=== PATIENT | female | born 1990 | race Caucasian/White ===

== ENCOUNTER 2019-11-07 08:10 | Emergency (ER) | payer OTHER, SELFPAY ==
[2019-11-07 08:40] VITALS: BP 108/74; PULSE 83; RESP 20; TEMP 36.5; O2SAT 99
--- NOTE | 2019-11-07 08:50 | ED.EYEPROB ---
HPI - Eye Problem General Chief complaint: Eye Problems Stated complaint: eye problems Time Seen by Provider: 11/07/19 08:50 Source: patient Mode of arrival: ambulatory Limitations: no limitations History of Present Illness HPI Narrative: Leda Madrid is a 25 yo female with a PMH of depression who comes to express care with L eye puffiness. mild redness that started yesterday. No injury mechanism Related Data Home Medications Medication Instructions Recorded Confirmed Iud 11/07/19 citalopram mg 11/07/19 Allergies Allergy/AdvReac Type Severity Reaction Status Date / Time Sulfa (Sulfonamide Allergy Hives Verified 11/07/19 08:50 Antibiotics) Review of Systems Review of Systems: Narrative: CONSTITUTIONAL: Denies fever, chills, sweats. EYES: Denies visual changes, mild redness, mild discharge. ENT: Denies rhinorrhea, congestion, sore throat, otalgia. CARDIOVASCULAR: Denies chest pain, palpitations, edema. RESPIRATORY: Denies dyspnea, wheezing, cough GASTROINTESTINAL: Denies abdominal pain, nausea, vomiting, diarrhea. GENITOURINARY: Denies dysuria, hematuria, abnormal discharge SKIN: Denies rash or itching. NEUROLOGIC: Denies numbness, or focal weakness. PSYCHIATRIC: Denies anxiety or depression. [facility] Family History Family History Other No active medical problems Social History Social History (Updated 11/07/19 @ 09:03 by Mimi Mooney CNP) Smoking status: Never smoker Alcohol intake: current Comments At time of signature, I agree with nursing past medical, surgical, social and family history. There is no relevant family history pertinent to the presenting complaint. Exam Narrative: Exam Narrative: GENERAL: This is a well-nourished, well-developed patient, in mild distress. HEAD: normocephalic, atraumatic. EYES: PERRL. Sclera mild injection. Mild edema to upper lid vision is grossly intact. EARS: External ears normal, Hearing grossly intact. NOSE: External nose normal without nasal discharge, nares without redness, no rhinorrhea. THROAT: Mucous membranes moist, NECK: Neck supple, CARDIOVASCULAR: Regular rate and rhythm without murmurs, gallops, or rubs. RESPIRATORY: Clear to auscultation. Breath sounds equal bilaterally. No wheezes, rales, or rhonchi. GASTROINTESTINAL: Abdomen soft, SKIN: warm, intact with no suspicious lesions or rash, good texture and turgor. NEURO: awake, alert, and oriented to person, place and time. There were no obvious focal neurologic abnormalities. Steady gait EXTREMITIES: Normal range of motion. BACK: Nontender without deformity Course Course Emergency Course: Started on polymyxin; given directions on care of bacterial conjunctivitis and use of warm soaks along with eyedrops. Discussed infection control, follow-up with laundry agent or ophthalmology Vital Signs Vital signs: Vital Signs Temperature 97.7 F 11/07/19 08:40 Pulse Rate 83 11/07/19 08:40 Respiratory Rate 20 11/07/19 08:40 Blood Pressure 108/74 11/07/19 08:40 Pulse Oximetry 99 11/07/19 08:40 Temperature 97.7 F 11/07/19 08:40 Pulse Rate 83 11/07/19 08:40 Respiratory Rate 20 11/07/19 08:40 Blood Pressure 108/74 11/07/19 08:40 Pulse Oximetry 99 11/07/19 08:40 MDM - Eye Problem Differential Diagnosis Differential diagnosis: Likely corneal abrasion, conjunctivitis and other Discharge Plan Discharge Clinical Impression: Bacterial conjunctivitis Patient Disposition: Home, Self-Care Condition: Stable Instructions: Antibiotic Form, Conjunctivitis (ED) Prescriptions: New sqnkerzy-mekofgwcc-ppwrxincto 1.75 mg-10,000 unit-0.025mg/mL drops 2 drop RIGHT EYE 4-12XD 7 Days Qty: 5 RF: 0 No Action Iud RF: 0 citalopram 20 mg Tablet RF: 0 Follow-up/Referrals: PHYSICIAN NOT ON STAFF,NONSTAFF [Primary Care Provider] - Time of Disposition: :08 Disc
== END 2019-11-07 09:12 | disposition home or self-care (01) ==
PROVIDERS: Emergency Provider Nurse Practitioner
DX: H10.89 Other conjunctivitis (principal); F32.9 Major depressive disorder, single episode, unspecified; Z97.5 Presence of (intrauterine) contraceptive device
CPT/HCPCS: 99203; G0463